=== PATIENT | male | born 1980 | race Caucasian/White ===

== ENCOUNTER → 2019-08-05 21:36 | Outpatient (CLI) | payer OTHER, SELFPAY ==
[2019-08-05 15:14] VITALS: BMI 31.4
[2019-08-05 21:57] LABS: Uric Acid 7.8 mg/dL (3.5-7.2)
== END ==
PROVIDERS: Referring Provider Nurse Practitioner; Visit Provider Nurse Practitioner
DX: M10.9 Gout, unspecified (principal)
CPT/HCPCS: 84550